=== PATIENT | female | born 1970 | race Caucasian/White ===

== ENCOUNTER → 2016-09-05 | Outpatient (CLI) | payer BC ==
[~2016-09-05] MED LIST: ATN25T; FENOFIBRIC ACID 135 MG; LRT10T; NF-HYDR25T; PRD20T
--- NOTE | 2016-09-05 11:57 | Diagnostic Imaging Report ---
PROCEDURE: CT abdomen and pelvis without contrast. TECHNIQUE: Multiple contiguous axial images were obtained through the abdomen and pelvis without the use of intravenous contrast. INDICATION: Abdominal pain. History of diverticulitis. FINDINGS: The lung bases are clear. The liver, the spleen, the pancreas, and the adrenals appear unremarkable for an unenhanced exam. Cholecystectomy clips are seen. There is no hydronephrosis. No urinary tract stones are seen. The abdominal aorta is normal in caliber. No para-aortic significantly enlarged lymph node is seen. The uterus and adnexa appear grossly unremarkable. There is sigmoid diverticulosis. No diverticulitis. No significant free fluid or fluid collection in the abdomen and pelvis seen. Surgical clips and sutures near the base of the cecum are probably related to prior appendectomy. The osseous structures demonstrate mild degenerative changes and sclerotic arthritic changes at the SI joints. IMPRESSION: Diverticulosis. No diverticulitis. Dictated by: Dictated on workstation # [id number]
== END ==
LOC: RAD 10:51
PROVIDERS: ATTEND Nurse Practitioner Family
DX: K57.30 Diverticulosis of large intestine without perforation or abscess without bleeding (principal)
CPT/HCPCS: 74176

== ENCOUNTER → 2016-09-05 | Outpatient (CLI) | payer BC ==
--- NOTE | 2016-09-05 16:35 | Diagnostic Imaging Report ---
EXAMINATION: Bilateral screening mammogram with a Computer Aided Detection (CAD) system. INDICATION: A screening exam was ordered. The patient has a nodule in the lateral aspect of the periareolar region of the right breast which is being followed. COMPARISON EXAM: 03/06/2016 and prior studies. FINDINGS: There is a stable 6 mm circumscribed lateral periareolar nodule in the right breast. The background parenchyma is almost entirely fat in both breasts with no developing mass, architectural distortion, or calcification seen since the prior exams. IMPRESSION: A stable 6 mm circumscribed lateral right periareolar mass is seen. The ultrasound evaluation is pending. ACR BI-RADS Category 0: Incomplete. (Needs additional imaging evaluation). Result letter will be mailed to the patient. Note: At least 10% of breast cancer is not imaged by mammography. Dictated by: Dictated on workstation # [id number]
--- NOTE | 2016-09-05 16:46 | Diagnostic Imaging Report ---
EXAMINATION: Right breast ultrasound. INDICATION: Followup lateral periareolar nodule. COMPARISON: 07/28/2015. FINDINGS: There is an indeterminate hypoechoic nodule again seen at the 9 o'clock periareolar region measuring 5 x 3 x 6 mm with no internal vascularity. It appears to be arising from the deep aspect of the skin although it projects into the breast tissue. The etiology is indeterminate but the stability from July 2015 is in favor of a benign etiology, possibly a sebaceous cyst. IMPRESSION: Stable indeterminate 0.6 cm nodule at the 9 o'clock periareolar region, probably arising from the deep aspect of the skin rather than the breast tissue itself. Another followup in 12 months to prove longer-term stability would be recommended. ACR BI-RADS Category 3: Probably benign findings. Result letter will be mailed to the patient. Note: At least 10% of breast cancer is not imaged by mammography. Dictated by: Dictated on workstation # [id number]
== END ==
LOC: RAD 10:47
PROVIDERS: ATTEND Obstetrics & Gynecology
DX: N63 Unspecified lump in breast (principal)
CPT/HCPCS: 77067

== ENCOUNTER 2016-10-18 12:32 | Outpatient (CLI) | payer BC ==
[~2016-10-18] VITALS: Ht 167.6 cm; Wt 94.9 kg
[2016-10-18 12:43] VITALS: BP 147/87
[2016-10-18 13:19] LABS: BASOPHILS % (AUTO) 0 % (0-10); EOSINOPHILS # (AUTO) 0.1 10^3/uL (0.0-0.3); EOSINOPHILS % (AUTO) 2 % (0-10); LYMPHOCYTES % (AUTO) 39 % (12-44); MEAN CORPUSCULAR HEMOGLOBIN 28 PG (25-34); MEAN CORPUSCULAR HGB CONC 34 G/DL (32-36); MEAN CORPUSCULAR VOLUME 83 FL (80-99); MEAN PLATELET VOLUME 10.8 FL (7.4-10.4); MONOCYTES # (AUTO) 0.4 X 10^3 (0.0-1.0); MONOCYTES % (AUTO) 5 % (0-12); NEUTROPHILS # (AUTO) 4.3 X 10^3 (1.8-7.8); NEUTROPHILS % (AUTO) 55 % (42-75); PLATELET COUNT 246 10^3/uL (130-400); RED BLOOD COUNT 4.82 10^6/uL (4.35-5.85); RED CELL DISTRIBUTION WIDTH 13.2 % (10.0-14.5); WHITE BLOOD COUNT 7.8 10^3/uL (4.3-11.0)
== END 2016-10-18 14:08 | disposition home or self-care (01) ==
LOC: PREOP 12:32
PROVIDERS: ATTEND Obstetrics & Gynecology
DX: Z01.812 Encounter for preprocedural laboratory examination (principal); Z11.2 Encounter for screening for other bacterial diseases; N80.0 Endometriosis of uterus; N93.8 Other specified abnormal uterine and vaginal bleeding; R10.2 Pelvic and perineal pain; D64.9 Anemia, unspecified
CPT/HCPCS: 36415; 85025; 86850; 86900; 86901; 87081

== ENCOUNTER 2016-10-25 11:00 | Day surgery (SDC) | payer BC ==
[~2016-10-25] VITALS: Ht 167.6 cm; Wt 94.9 kg
--- OUTSIDE RECORDS SUMMARY | 2016-10-25 11:09 | XMS REPORT | Continuity of Care Document ---
Author Author [facility] Organization [facility] Address Unknown Phone Unavailable Allergies Active Description Code Type Severity Reaction Onset Reported/Identified Relationship to Patient Clinical Status Yes NKANo Known Allergies NKA Miscellaneous Allergy Unknown N/ A 06/23/2008 Yes No Known Drug Allergies [id number] Drug Allergy Unknown N/ A 10/18/2016 Medications Problems Date Dx Coded Attending Type Code Diagnosis Diagnosed By 04/29/2014 Ot 569.89 04/29/2014 Ot 789.06 04/29/2014 Ot 789.06 04/29/2014 Ot 790.29 04/29/2014 Ot 924.20 04/29/2014 Ot E000.8 04/29/2014 Ot E849.0 04/29/2014 Ot E928.9 04/29/2014 NORBERTO SCHWARTZ DO Ot 786.50 CHEST PAIN NOS 04/29/2014 Ot 569.89 04/29/2014 Ot 789.06 04/29/2014 Ot 789.06 04/29/2014 Ot 790.29 04/29/2014 Ot 924.20 04/29/2014 Ot E000.8 04/29/2014 Ot E849.0 04/29/2014 Ot E928.9 04/20/2015 Ot 569.89 04/20/2015 Ot 789.06 04/20/2015 Ot 789.06 04/20/2015 Ot 790.29 04/20/2015 Ot 924.20 04/20/2015 Ot E000.8 04/20/2015 Ot E849.0 04/20/2015 Ot E928.9 05/05/2015 DEWEY ENNIS APRN Ot R10.32 07/19/2015 TAYE ORTA, SUSAN Arriaga Ot Z12.31 07/20/2015 TAYE ORTA, SUSAN Arriaga Ot Z12.31 07/28/2015 TAYE ORTA, SUSAN Arriaga Ot Z12.31 07/29/2015 SUSAN KOTHARI MD, Ot R92.8 07/29/2015 SUSAN KOTHARI MD, Ot R92.8 08/03/2015 SUSAN KOTHARI MD, Ot R92.8 OTH ABN AND INCONCLUSIVE FINDINGS ON DX 08/12/2015 SUSAN KOTHARI MD, Ot R92.8 OTH ABN AND INCONCLUSIVE FINDINGS ON DX 09/15/2015 Ot 924.20 CONTUSION OF FOOT 09/15/2015 Ot E000.8 OTHER EXTERNAL CAUSE STATUS 09/15/2015 Ot E849.0 ACCIDENT IN HOME 09/15/2015 Ot E928.9 ACCIDENT NOS 09/15/2015 DEWEY ENNIS INSPECTOR ALIGNING Ot R10.32 LEFT LOWER QUADRANT PAIN 09/15/2015 DEWEY ENNIS INSPECTOR ALIGNING Ot R10.12 LEFT UPPER QUADRANT PAIN 09/15/2015 DEWEY ENNIS INSPECTOR ALIGNING Ot R10.32 LEFT LOWER QUADRANT PAIN 09/15/2015 SUSAN KOTHARI MD Ot Z12.31 ENCNTR SCREEN MAMMOGRAM FOR MALIGNANT NE 09/15/2015 SUSAN KOTHARI MD, Ot R92.8 OTH ABN AND INCONCLUSIVE FINDINGS ON DX 03/14/2016 SUSAN KOTHARI MD, Ot R92.8 OTH ABN AND INCONCLUSIVE FINDINGS ON DX 03/23/2016 SUSAN KOTHARI MD, Ot R92.8 OTH ABN AND INCONCLUSIVE FINDINGS ON DX 09/10/2016 LYNNE DAVIS Ot K57.30 DVRTCLOS OF LG INT W/O PERFORATION OR AB 09/20/2016 LYNNE DAVIS Ot K57.30 DVRTCLOS OF LG INT W/O PERFORATION OR AB 09/20/2016 SUSAN KOTHARI MD, Ot N63 UNSPECIFIED LUMP IN BREAST 10/19/2016 SUSAN KOTHARI MD, Ot D64.9 ANEMIA, UNSPECIFIED 10/19/2016 SUSAN KOTHARI MD, Ot N80.0 ENDOMETRIOSIS OF UTERUS 10/19/2016 SUSAN KOTHARI MD Ot N93.8 OTHER SPECIFIED ABNORMAL UTERINE AND VAG 10/19/2016 SUSAN KOTHARI MD Ot R10.2 PELVIC AND PERINEAL PAIN 10/19/2016 TAYE ORTA, SUSAN Arriaga Ot Z01.812 ENCOUNTER FOR PREPROCEDURAL LABORATORY E 10/19/2016 SUSAN KOTHARI MD, Ot Z11.2 ENCOUNTER FOR SCREENING FOR OTHER BACTER Procedures Results Test Result Range Methicillin resistant Staphylococcus aureus (MRSA) screening culture - 13:00 Methicillin resistant Staphylococcus aureus (MRSA) screening culture NEG NRG Complete blood count (CBC) with automated white blood cell (WBC) differential - 10/18/16 13:05 Blood leukocytes automated count (number/volume) 7.8 10*3/ uL 4.3-11.0 Blood erythrocytes automated count (number/volume) 4.82 10*6 /uL 4.35-5.85 Venous blood hemoglobin measurement (mass/volume) 13.5 g/dL 11.5-16.0 Blood hematocrit (volume fraction) 40 % 35-52 Automated erythrocyte mean corpuscular volume 83 [foz_us] 80-99 Automated erythrocyte mean corpuscular hemoglobin (mass per erythrocyte) 28 pg 25-34 Automated erythrocyte mean corpuscular hemoglobin concentration measurement ( mass/volume) 34 g/dL 32-36 Automated erythrocyte distribution width ratio 13.2 % 10.0-14.5 Automated blood platelet count (count/volume) 246 10*3/uL 130-400 Automated blood platelet mean volume measurement 10.8 [foz_ us] 7.4-10.4 Automated blood neutrophils/100 leukocytes 55 % 42-75 Automated blood lymphocytes/100 leukocytes 39 % 12-44 Blood monocytes/100 leukocytes 5 % 0-12 Automated blood eosinophils/100 leukocytes 2 % 0-10 Automated blood basophils/100 leukocytes 0 % 0-10 Blood neutrophils automated count (number/volume) 4.3 10*3 1.8-7.8 Blood lymphocytes automated count (number/volume) 3.0 10*3 1.0-4.0 Blood monocytes automated count (number/volume) 0.4 10*3 0.0-1.0 Automated eosinophil count 0.1 10*3/uL 0.0-0.3 Automated blood basophil count (count/volume) 0.0 10*3/uL 0.0-0.1 Blood type T Indirect antibody screen panel - 10/18/16 13:05 ABO+Rh group OP NRG Blood group antibody screen NEGATIVE NRG Encounters ACCT No. Visit Date/Time Discharge Status Pt. Type Provider Facility Loc./Unit Complaint [id number] 10/18/2016 12:32:00 2016 14:08:00 DIS Outpatient SUSAN KOTHARI MD [facility] PREOP CHRONIC PELVIC PAIN/ ENDOMETRIOSIS/DUB [id number] 04/29/2014 15:02:00 2014 17:22:00 DIS Emergency NORBERTO SCHWARTZ DO [facility] ER [id number] 10/25/2016 13:00:00 PEN Preadmit SUSAN KOTHARI MD [facility] SDC CHRONIC PELVIC PAIN/ENDOMETRIOSIS/DUB [id number] 09/05/2016 10:51:00 ACT Outpatient LYNNE DAVIS [facility] RAD ABD PAIN [id number] 09/05/2016 10:47:00 ACT Outpatient SUSAN KOTHARI MD [facility] RAD SCREENING, 6 MONTH FOLLOW UP [id number] 03/06/2016 13:01:00 ACT Outpatient SUSAN KOTHARI MD [facility] RAD FOLLOW UP [id number] 07/28/2015 13:55:00 ACT Outpatient SSUAN KOTHARI MD [facility] RAD [id number] 07/16/2015 13:35:00 ACT Outpatient SUSAN KOTHARI MD [facility] RAD [id number] 06/09/2015 15:32:00 ACT Outpatient DEWEY ENNIS APRN [facility] RAD [id number] 04/20/2015 10:12:00 ACT Outpatient DEWEY ENNIS APRN [facility] RAD [id number] 09/24/2014 16:10:00 Document Registration [id number] 03/30/2010 11:40:00 Document Registration [id number] 12/29/2009 15:15:00 Document Registration [id number] 12/29/2009 10:39:00 Document Registration
[2016-10-25] MEDS ORDERED: ceFAZolin 1 GM/NS 50 ML IVPB IV ONE ×2 (11:30)
[2016-10-25] MEDS ORDERED: CATHETER FLUSH 10 ML SYR IV PRN (11:30)
[2016-10-25] MEDS: LACTATED RINGERS 1,000 ML IV PRN ×2 (11:30→14:30)
[2016-10-25 11:53] VITALS: BP 143/100
[2016-10-25] MEDS ORDERED: MIDAZOLAM 2 MG/2 ML (VERSED) VIAL IV ONE (12:15)
[2016-10-25] MEDS ORDERED: SEVOFLURANE (ULTANE) 15 ML INHAL SOLN ONE ×6 (12:27→15:39)
[2016-10-25] MEDS ORDERED: proPOfol 200 MG/20 ML (DIPRIVAN) VIAL IV ONE (12:27)
[2016-10-25] MEDS ORDERED: BUP/EPI 0.25% 1:200,000 (MARCAINE) 10 ML VIAL IJ ONE (12:27)
[2016-10-25] MEDS ORDERED: fentaNYL INJECTION 250 MCG/5 ML AMP ONE (12:27)
[2016-10-25] MEDS ORDERED: LIDOCAINE PF 2% 5 ML (XYLOCAINE) VIAL ONE (12:27)
[2016-10-25] MEDS ORDERED: LACTATED RINGERS 1,000 ML IV ONE ×3 (12:27→15:39)
[2016-10-25] MEDS ORDERED: ROCURONIUM 50 MG/5 ML (ZEMURON) VIAL IV ONE ×2 (12:27→14:32)
[2016-10-25] MEDS ORDERED: MIDAZOLAM 2 MG/2 ML (VERSED) VIAL ONE (12:28)
[2016-10-25] MEDS ORDERED: ONDANSETRON 4 MG/2 ML (SDV) Z0FRAN ONE (12:35)
[2016-10-25] MEDS ORDERED: DEXAMETHASONE PF 10 MG/ML (DECADRON) VIAL ONE (12:35)
--- NOTE | 2016-10-25 13:26 | Progress Note-Pre Operative ---
Pre-Operative Progress Note H&P Reviewed The H&P was reviewed, patient examined and no changes noted. Date Seen by Provider: Oct 25, 2016 Time Seen by Provider: 13:26 Date H&P Reviewed: Oct 25, 2016 Time H&P Reviewed: 13: Pre-Operative Diagnosis: chronic pelvic pain/menorrhagia/dysfunctional uterine bleeding SUSAN KOTHARI MD Oct 25, 2016 1:26 pm
--- NOTE | 2016-10-25 13:28 | Progress Note-Post Operative ---
Post-Operative Progess Note Surgeon (s)/Transportation Maintenance Specialist (s) Surgeon SUSAN KOTHARI MD Transportation Maintenance Specialist: Stefany Laws are in Pre-Operative Diagnosis chronic pelvic pain/menorrhagia/dysfunctional uterine bleeding Post-Operative Diagnosis same with pathology pending pelvic adhesions and fibrosis Procedure & Operative Findings Date of Procedure 10/25/16 Procedure Performed/Findings T LH/BSO and cystoscopy (free ureteral eflux bilaterally) - final path pending - frozen section of blood vessel Anesthesia Type Gen. endotracheal Estimated Blood Loss Estimated blood loss (mL): minimal Specimens/Packing Specimens Removed uterus tubes and ovaries - portion of pelvic blood vessel Packing: none SUSAN KOTHARI MD Oct 25, 2016 13:28
[2016-10-25] MEDS ORDERED: ESTROGENS CONJ IV 25 MG/5 ML (PREMARIN) VIAL IVP ONE (13:30)
[2016-10-25] MEDS ORDERED: ONDANSETRON 4 MG/2 ML (SDV) Z0FRAN IVP PRN ×2 (13:30→15:45)
[2016-10-25] MEDS ORDERED: WATER (STERILE) FOR INJ 10 ML BTL INJ ONE (13:30)
[2016-10-25] MEDS ORDERED: KETOROLAC 30 MG/ML VIAL IVP SCH (13:30)
[2016-10-25] MEDS ORDERED: PROMETHAZINE INJ 25 MG/ML (PHENERGAN) AMP IM PRN (13:30)
[2016-10-25] MEDS ORDERED: oxyCODONE/APAP 10/325MG (PERCOCET 10) TABLET PO PRN (13:30)
[2016-10-25] MEDS ORDERED: MEPERIDINE (DEMEROL) INJ 100 MG/ML IM PRN (13:30)
[2016-10-25] MEDS ORDERED: morphine INJ 10 MG/ML 1ML (SYR OR VIAL) ONE ×2 (15:07→15:37)
[2016-10-25] MEDS ORDERED: WATER (STERILE) FOR INJECTION 10 ML ONE (15:37)
[2016-10-25] MEDS ORDERED: ESTROGENS CONJ IV 25 MG/5 ML (PREMARIN) VIAL ONE (15:38)
[2016-10-25] MEDS ORDERED: HYDROmorphone (DILAUDID) 2 MG/ML VIAL IVP PRN (15:45)
[2016-10-25] MEDS ORDERED: MEPERIDINE (DEMEROL) INJ 50 MG/ML IVP PRN (15:45)
[2016-10-25] MEDS: morphine INJ 10 MG/ML 1ML (SYR OR VIAL) IVP PRN ×2 (15:45→15:55)
[2016-10-25] MEDS ORDERED: NS 100 ML (IVPB) BAG IV ONE (16:45)
[2016-10-25] MEDS ORDERED: IOHEXOL 350 MG/ML 100 ML (OMNIPAQUE 350) VIAL IV ONE (16:45)
[2016-10-25 17:30] VITALS: BP 136/87
[2016-10-25] MEDS: D5 LR IV SOLUTION 1,000 ML IV SCH (17:30)
--- NOTE | 2016-10-25 17:33 | Diagnostic Imaging Report ---
PROCEDURE: CT abdomen and pelvis with and without contrast. TECHNIQUE: Precontrast acquisitions were acquired through the abdomen and pelvis. Multiple contiguous axial images were obtained through the abdomen and pelvis after the administration of intravenous contrast. INDICATION: Left ureteric distortion. 100 mL of Omnipaque 350 is administered intravenously. FINDINGS: The lung bases demonstrate minimal atelectasis. The visualized portions of the liver and spleen appear unremarkable. There are cholecystectomy clips with expected slight prominence of the biliary ducts with no definite obstructive lesion. The pancreas appears unremarkable. The adrenal glands appear unremarkable. There is bilateral symmetric enhancement in the kidneys with no hydronephrosis. On delayed-phase imaging, there is opacification of both ureters which demonstrate normal caliber and demonstrate opacification to the urinary bladder with no abnormality seen. He catheter is seen within the urinary bladder. There is no evidence of contrast extravasation from the urinary tract. There is a small amount of fluid and air in the hysterectomy bed and small amount of pneumoperitoneum and air along the anterior abdominal wall, all presumably related to normal postsurgical changes. There is no evidence of hemorrhage in the abdomen or pelvis. There is diverticulosis. No evidence of diverticulitis. No bowel obstruction. There are surgical clips seen near the base of the cecum probably related to prior appendectomy. The osseous structures appear grossly unremarkable. IMPRESSION: 1. Diverticulosis. No diverticulitis. 2. Expected postoperative changes including a small amount of simple fluid seen along the hysterectomy bed. Dictated by: Dictated on workstation # [id number]
[2016-10-25] MEDS ORDERED: MEPERIDINE (DEMEROL) INJ 100 MG/ML ONE (17:48)
[2016-10-25] MEDS ORDERED: PROMETHAZINE INJ 25 MG/ML (PHENERGAN) AMP ONE (17:48)
[2016-10-25 21:30] VITALS: BP 122/74
[2016-10-25] MEDS: KETOROLAC 30 MG/ML VIAL IVP SCH (21:36)
[2016-10-26 01:18] VITALS: BP 116/70
[2016-10-26] MEDS: D5 LR IV SOLUTION 1,000 ML IV SCH ×2 (01:18→06:13)
[2016-10-26] MEDS: KETOROLAC 30 MG/ML VIAL IVP SCH (03:23)
[2016-10-26 05:00] VITALS: BP 112/71
--- NOTE | 2016-10-26 08:20 | Progress Note-Standard ---
Standard Progress Note Progress Notes/Assess & Plan Date Seen by Provider: Oct 26, 2016 Time Seen by Provider: 08:18 Progress/Assessment & Plan this patient is without complaint. She is ambulating, she hasn't voided since her catheters been removed. She has good pain control. She denies nausea vomiting denies headache denies shortness of breath.. A lengthy discussion describing the surgical procedure and in particular the issues with localizing and demonstrating the left ureter. Patient understands that while never consistently demonstrate the left ureter that was freely effluxing of urine into the bladder on cystoscopy and a postoperative CT was normal in that regard as well. Patient does feel ready for discharge home Vital Signs Date Time Temp Pulse Resp B/P (MAP) Pulse Ox O2 Delivery O2 Flow Rate FiO2 10/26/16 05:00 98.0 88 18 112/71 97 Room Air 10/26/16 01:18 98.2 87 16 116/70 98 Room Air 10/25/16 21:30 98.9 91 16 122/74 96 Room Air 10/25/16 20:47 Room Air 10/25/16 19:11 Room Air 10/25/16 17:30 97.0 80 16 136/87 96 Room Air 10/25/16 15:55 97.8 10/25/16 15:45 97.8 10/25/16 11:53 98.4 84 16 143/100 96 Room Air I & O 10/26/16 07:00 Intake Total 5450 ml Output Total 3375 ml Balance 2075 ml Signs are stable. Patient is afebrile. The abdomen is benign. There are bowel sounds present in all 4 quadrants. Extremities show no clubbing or cyanosis. There is no Homans sign. Assessment and plan post operative day number 1 doing well. plan is for discharge home with follow-up in clinic. Patient has been given strict precautions in regard to signs symptoms and indications of the bowel or urologic injury. Final Diagnosis dysfunctional uterine bleeding/chronic pelvic pain/menorrhagia SUSAN KOTHARI MD Oct 26, 2016 8:20 am
[2016-10-26] MEDS ORDERED: IBUP-1780 PO (08:22)
[2016-10-26] MEDS ORDERED: DOCU100C37 PO (08:22)
[2016-10-26] MEDS ORDERED: ESTR1TAB24 PO (08:22)
[2016-10-26] MEDS ORDERED: OXYC-465 PO (08:22)
--- NOTE | 2016-10-26 08:24 | Discharge Instructions ---
Discharge Instructions Discharge Medications New, Converted or Re-Newed RX: RX on Chart Patient Instructions Patient Instructions: as directed Return to The Hospital For: as directed Activity & Diet Discharge Diet: No Restrictions Activity as Tolerated: No Orders-Post D/C & Referrals Follow Up Appt: return to clinic on Sunday, October 30, 2016 at 930 a.m. for staple removal Call to make follow up appt. for patient in 4 weeks. Activity: Rest for 24 hours, than as tolerated. Wound Care: May remove Band-Aid tomorrow. Replace as desired. Keep incisions clean and dry. Wash daily with soap and water. Please call in RX to patient pharmacy. Diet: As tolerated-Clear Liquids only if nauseated. May shower or tub bathe as desired. No driving for 24 hours, no alcoholic beverages for 24 hours, and nothing per vagina (no tampons, douching, or intercourse) for 8 weeks. Patient to return to the clinic as soon as possible for: Temperature greater than 101F, Severe Pain, Foul discharge from incision or vagina, Excessive Bleeding (more than a period). SUSAN KOTHARI MD Oct 26, 2016 8:24 am
[2016-10-26] MEDS ORDERED: IBUPROFEN 800 MG (MOTRIN) TAB PO ONE (08:53)
[2016-10-26 09:00] VITALS: BP 125/73
[2016-10-26] MEDS ORDERED: ESTRADIOL 1 MG TAB (ESTRACE) PO SCH (09:00)
[2016-10-26] MEDS ORDERED: DOCUSATE SODIUM 100 MG (COLACE) CAP PO SCH (09:00)
[2016-10-26] MEDS ORDERED: IBUPROFEN 800 MG (MOTRIN) TAB PO SCH (16:00)
--- NOTE | 2016-10-27 10:25 | OPERATIVE REPORT ---
PROCEDURE PHYSICIAN: SUSAN KOTHARI DATE OF PROCEDURE: 10/25/2016 PREOPERATIVE DIAGNOSIS: 1. Dysfunctional uterine bleeding. 2. Chronic pelvic pain. 3. Menorrhagia. PREOPERATIVE DIAGNOSIS: 1. Dysfunctional uterine bleeding. 2. Chronic pelvic pain. 3. Menorrhagia. 4. Endometriosis. 5. Extensive pelvic adhesions and fibrosis. OPERATIVE PROCEDURE: Total laparoscopic hysterectomy with bilateral salpingo-oophorectomy, adhesiolysis. followed by cystoscopy. OPERATIVE DESCRIPTION: With the patient in the supine position, under satisfactory general anesthesia, she was repositioned in dorsal lithotomy position in Lobo stirrups and prepped and draped usual fashion for abdominal and vaginal surgery. The urinary bladder was drained via He catheter to dependent drainage. A weighted speculum placed in posterior fornix of vagina. Cervix exposed and grasped anteriorly with single-tooth tenaculum. The uterus sounded to 11 cm of uterine sound. The cervix was then serially dilated with Wesley dilator to accommodate a Elle II manipulator, which was placed using a 6 mm x 8 cm uterine probe and a 30 mm colpotomy ring. Sutures of #1 Vicryl were placed at the 3 and 9 o'clock positions to affix the cervix to the manipulator. The patient was brought in a low dorsal lithotomy position and a 12 mm incision made 4 cm superior to the umbilicus. 8 mm incisions were made 9 cm lateral to the umbilicus. All those incision sites were infiltrated with quarter percent Marcaine with epinephrine prior to the incision. A Veress needle was placed through the superior incision, correct placement confirmed with the water drop test. The abdomen was insufflated with 2.4 liters of carbon dioxide then the Veress needle was removed and a 12 mm Optiview laparoscopic port placed. Here there were some adhesions on the anterior abdominal wall, but the ports could be advanced past those or by those so we did not need to do adhesiolysis for those anterior abdominal wall omental adhesions. The lateral ports were placed under direct vision. The patient was placed in Trendelenburg, allowing the bowel to spill up out of the pelvis. Visibility and exposure of the pelvis was perfectly adequate. There was some adhesions and scar tissue in the pelvis. There was some fairly dense fibrosis, particularly in the left pelvis but that extended across the back of the posterior lower uterine segment as well. The operative instruments were placed and using a vessel sealer on the right and bipolar fenestrated grasper on the left, the pelvis was first examined. Both ovaries were normal in appearance. Both fallopian tubes showed evidence of damage and changes from progressive endometriosis, particularly in the form of clubbing at the end of the fallopian tube and a distorted tortuous fibrotic nature of the tubes. The uterus was quite mottled in appearance consistent with adenomyosis. The bladder was advanced well up on the anterior lower uterine segment from her previous . The right ureter was easily seen to peristalt. The left ureter was seen on three distinct occasions to peristalt down away from the areas of dissection. The laparoscope was rotated. The upper abdomen examined. There was no abnormal pathology noted, although there were some adhesions; these were involving just omentum. The appendix was surgically absent. The sigmoid colon was somewhat adherent to the left pelvic brim. These adhesions were somewhat filmy and were taken down very easily with the vessel sealer. Care was taken to avoid thermal or traumatic injury to bowel and to adjacent structures. Attention was then turned to the right tube and ovary which were elevated. The vessel sealer was used to clamp, cauterized, and divided the mesovarian, across to the round ligament and across the broad ligaments, and down onto the cardinal ligament. The same procedure performed on the left allowing for removal of both tubes and ovaries. At this point an attempt was made to dissect the ureter free. I never could clearly reproducibly isolate the ureter. The ureter was seen to peristalt and once I saw that I continued with the dissection with the intent to come back and visualized hopefully better later. The anterior lower uterine segment peritoneum was now divided with some care difficulty because of dense fibrosis and the advancement of the bladder well up onto the anterior surface of the uterus. The bladder was eventually freed and swept down past the colpotomy ring that was visible through its position in the vagina through the vaginal wall. Colpotomy incision then made at 12 o'clock position and continued circumferentially until the entire colpotomy ring was exposed and then the uterus with tubes and ovaries still attached was extracted through the vagina. There was a nodular lesion on the anterior lower pelvic peritoneum; this was removed with uterine specimen as well. It looked like it could be a little focus of endometriosis, however, could have been fibrosis or a small fibroid. That was included with the tissue that was sent to pathology. With the uterus removed, the pelvis was irrigated. Hemostasis was satisfactory. The instruments were replaced with a Cobra grasper on the left and a rosemarie cut needle yard truck driver on the right. The vaginal cuff was closed V-LOC boris suture starting at the right angle and continuing past the midportion of the vagina. The peritoneum was brought back down on that side with the closure with the last several stitches. The right ureter was easily visible and well down away from the area of dissection and the area suture and closure. Before starting the closure on the left part of the vaginal cuff, I did attempt to dissected out the ureter again. I never found the ureter clearly and distinctly; on one occasion I did see the ureter peristal and it was away from the area that I had operated on, however, I never saw the ureter reproducibly and was still as concerned about it. There was one little tubular structure of tissue that I removed and sent to pathology for permanent section. It was reported back as a fragment of blood vessel with associated nerves. Feeling comfortable that the ureter was away from of the area of dissection by virtue of having seen on several transient occasions through the surgery, I went ahead and closed the vaginal cuff on the left, same as on the right, advancing the vaginal cuff up on the uterosacral ligaments bilaterally for support of the vaginal apex. The peritoneum was brought back down on that closure. The pelvis was now copiously irrigated and examined for hemostasis, which was complete. The right ureter was easily seen, the left ureter was not clearly visible. The procedure at this point laparoscopic was terminated. The patient brought out of Trendelenburg. The operative instruments were removed under direct vision. The operative ports were also removed. The abdomen was evacuated of insufflating gas in the process of removing the ports. The skin incisions were stapled. The fascia at the supraumbilical incision closed with [id number] suture of 2-0 Vicryl. Attention was then turned to the cystoscopy. Using a 70 degree cystoscope the trigone area was examined, prompt efflux from both ureters was immediately evident. Both ureters were seen on efflux several episodes during this brief cystoscopy with certainly that the ureter was effluxing normally. The decision was made to end the procedure with plans for follow-up likely for a radiographic study to confirm the integrity of the ureters prior to discharge. The speculum was replaced in the vagina. The vaginal cuff was completely closed and hemostatic. Sponge and needle counts were correct on completion of the procedure. Estimated blood loss was minimal. The patient tolerated the procedure well, and was uneventfully awakened from general anesthesia and transferred to recovery room in stable condition. Job ID: [id number] Dictated Date: 10/25/2016 15:36:32 Roll Tender Date: 10/27/2016 09:46:03 / lon
== END 2016-10-26 09:30 | disposition home or self-care (01) ==
LOC: SDC 11:00 → WS 17:52 → SDC 10-26 09:30
PROVIDERS: ATTEND Obstetrics & Gynecology
DX: N72 Inflammatory disease of cervix uteri (principal); N83.202 Unspecified ovarian cyst, left side; N83.8 Other noninflammatory disorders of ovary, fallopian tube and broad ligament; Z87.891 Personal history of nicotine dependence
CPT/HCPCS: 36415; 74178; 82565; 84703; 88305; 88307; 88331; 94664; 96361; 96372; 96375; 96376

== ENCOUNTER 2019-02-07 09:41 | Outpatient (CLI) | payer BC ==
[~2019-02-07] VITALS: Ht 167.7 cm; Wt 90.9 kg
[~2019-02-07 09:41] MED LIST changes: +DOCU100C37 PO; +ESTR1TAB24 PO; +IBUP-1780 PO; +OXYC-465 PO
== END 2019-02-07 09:56 | disposition home or self-care (01) ==
LOC: PREOP 09:41
PROVIDERS: ATTEND Surgery
DX: Z01.818 Encounter for other preprocedural examination (principal)